=== PATIENT | male | born 1960 | race Caucasian/White ===

== ENCOUNTER 2019-01-21 13:02 | Emergency (ER) | payer OTHER ==
[~2019-01-21] VITALS: Ht 152.4 cm; Wt 54.5 kg
[2019-01-21 13:20] VITALS: BP 181/88; PULSE 89; RESP 18; Ht 152.4 cm; Wt 54.5 kg
[2019-01-21] MEDS ORDERED: KETOROLAC 60 MG INJ IM STA (13:43)
[2019-01-21] MEDS ORDERED: HYDR-4011 PO (13:46)
[2019-01-21] MEDS ORDERED: CYCL10TA7 PO (13:46)
[2019-01-21] MEDS ORDERED: NAPR-985 PO (13:46)
[2019-01-21] MEDS ORDERED: MED4DP PO (13:46)
[2019-01-21] MEDS ORDERED: DEXAMETHASONE 10 MG/ML 1 ML INJ IM ONE (14:00)
[2019-01-21] MEDS ORDERED: DIAZEPAM 5 MG TAB PO ONE (14:00)
--- NOTE | 2019-01-21 15:38 | ERD ---
ER Documentation Chief Complaint Chief Complaint right hip pain radiating down right leg x 1 week; denies injry or trauma HPI 58-year-old male presenting with hip pain x1 week. Patient has pain down right buttock and denies any recent falls. Denies any change in urination or bowel movement. Patient has normal urination and bowel movements. Denies any fevers. No recent falls. Denies other medical problems. NKDA. Surgical history denie s. Social history denies ROS All systems reviewed and are negative except as per history of present illness. Medications Home Meds Active Scripts Methylprednisolone* (Medrol* DOSE PACK) 4 Mg/Dose-Pack Tab.ds.pk, 4 MG PO . DIRECTED, #1 PACKET Prov:TAD CORTES PA-C 01/21/19 Cyclobenzaprine Hcl* (Cyclobenzaprine Hcl*) 10 Mg Tablet, 10 MG PO TID, #15 TAB Prov:TAD CORTES PA-C 01/21/19 Naproxen* (Naprosyn*) 500 Mg Tablet, 500 MG PO BID PRN for PAIN AND/OR INFLAMMATION, #30 TAB Prov:TAD CORTES PA-C 01/21/19 Hydrocodone/Acetaminophen ([place] 5-325 Tablet) 1 Each Tablet, 1 TAB PO Q6H PRN for PAIN, #7 TAB Prov:TAD CORTES PA-C 01/21/19 Allergies Allergies: Coded Allergies: aspirin (Verified Allergy, Unknown, 01/21/19) PMhx/Soc Medical and Surgical Hx: pt denies Medical Hx, pt denies Surgical Hx Hx Alcohol Use: No Hx Substance Use: No Smoking Status: Never smoker FmHx Family History: No diabetes, No coronary disease, No other Physical Exam Vitals Vital Signs Date Temp Pulse Resp B/P (MAP) Pulse Ox O2 O2 Flow FiO2 Time Delivery Rate 01/21/19 97.8 89 18 181/88 98 13:20 (119) Physical Exam GENERAL: The patient is well-appearing, well-nourished, in no acute distress CHEST: Clear to auscultation bilaterally. There are no rales, wheezes or rhonchi. HEART: Regular rate and rhythm. No murmurs, clicks, rubs or gallops. No S3 or S4. BACK: No midline or flank tenderness. To palpation down buttocks. EXTREMITIES: Equal pulses bilaterally. There is no peripheral clubbing, cyanosis or edema. No focal swelling or erythema. Full range of motion. NEUROLOGIC: Alert and oriented. Cranial nerves II through XII intact. Motor strength in all 4 extremities with 5 out of 5 strength. Sensation grossly intact. Normal speech and gait. SKIN: There is no apparent rash or petechiae. The skin is warm and dry. Results 24 hrs Current Medications Medications Dose Sig/Mauri Start Time Status Last (Trade) Ordered Route PRN Stop Time Admin Dose Reason Admin Diazepam 5 mg ONCE ONCE 01/21/19 DC 01/21/19 (Valium) PO 14:00 13:49 01/21/19 14:01 Ketorolac 60 mg ONCE STAT 01/21/19 DC 01/21/19 Tromethamine IM 13:43 13:49 (Toradol) 01/21/19 13:44 10 mg ONCE ONCE 01/21/19 DC 01/21/19 Dexamethasone IM 14:00 13:50 (Decadron) 01/21/19 14:01 Procedures/MDM ER course: Decadron, Toradol and Valium given in ED. MDM: 58-year-old male presenting with findings consistent with sciatic back pain. I have low suspicion for acute fracture dislocation. I have low suspicion for cauda equina, discitis or epidural abscess. Patient is discharged with strict ER precautions and told to follow-up with primary care within 1 to 2 days for close evaluation. Patient is told if symptoms change or worsen to return immediately to the ER. All questions answered at discharge Departure Diagnosis: Primary Impression: Sciatica Condition: Stable Patient Instructions: Back Pain W/ Sciatica Referrals: [facility] YOU HAVE RECEIVED A MEDICAL SCREENING EXAM AND THE RESULTS INDICATE THAT YOU DO NOT HAVE A CONDITION THAT REQUIRES URGENT TREATMENT IN THE EMERGENCY DEPARTMENT. FURTHER EVALUATION AND TREATMENT OF YOUR CONDITION CAN WAIT UNTIL YOU ARE SEEN IN YOUR DOCTORS OFFICE WITHIN THE NEXT 1-2 DAYS. IT IS YOUR RESPONSIBILITY TO MAKE AN APPOINTMENT FOR FOLOW-UP CARE. IF YOU HAVE A PRIMARY DOCTOR --you should call your primary doctor and schedule an appointment IF YOU DO NOT HAVE A PRIMARY DOCTOR YOU CAN CALL OUR PHYSICIAN REFERRAL HOTLINE AT IF YOU CAN NOT AFFORD TO SEE A PHYSICIAN YOU CAN CHOSE FROM THE FOLLOWING [facility] [id number] [facility] [address] [facility] [address] [facility] [address] [facility] [address] [facility]. [facility]. [address] Additional Instructions: FOLLOW UP WITH YOUR PRIMARY CARE PHYSICIAN TOMORROW.Return to this facility if you are not improving as expected. TAD CORTES PA-C Jan 21, 2019 15:38
== END 2019-01-21 14:13 | disposition home or self-care (01) ==
LOC: FTE 13:02
DX: M54.41 Lumbago with sciatica, right side (principal)
CPT/HCPCS: J1100; J1885; Z7610; 96372